=== PATIENT | male | born 1985 | race Caucasian/White ===

== ENCOUNTER 2022-03-27 13:33 | Emergency (ER) | payer OTHER ==
[~2022-03-27] VITALS: Ht 175.3 cm; Wt 88.0 kg
[2022-03-27 13:56] VITALS: BP 132/79
[2022-03-27] MEDS ORDERED: predniSONE 20 MG TAB PO ONE (14:20)
[2022-03-27] MEDS ORDERED: LORATADINE 10 MG TAB PO ONE (14:20)
[2022-03-27] MEDS ORDERED: HYD1C TP (14:51)
[2022-03-27] MEDS ORDERED: LORA10TA PO (14:51)
[2022-03-27] MEDS ORDERED: ATA25 PO (15:17)
--- NOTE | 2022-03-27 16:35 | NUR ---
PT UP FOR D/C BY [facility]. PT LEFT WITHOUT D/C PAPERS. RX OF ATARAX AND HYDROCORTISONE SENT TO [facility]
== END 2022-03-27 16:35 | disposition home or self-care (01) ==
LOC: MED 13:33
DX: L25.9 Unspecified contact dermatitis, unspecified cause (principal); F20.9 Schizophrenia, unspecified; Z79.899 Other long term (current) drug therapy
CPT/HCPCS: 99283; J7512